=== PATIENT | female | born 1960 | race Two or more races ===

== ENCOUNTER 2022-12-10 14:48 | Emergency (ER) | payer OTHER ==
[~2022-12-10] VITALS: Ht 152.4 cm; Wt 51.7 kg
[~2022-12-10 14:48] MED LIST: ANTIVERT25 M1 PO; PHENERGAN25 MG PO
[2022-12-10] MEDS ORDERED: PEPCID AC20 MG PO (19:16)
[2022-12-10] MEDS ORDERED: LEVSIN/SL0.125 MG SL (19:16)
== END 2022-12-10 19:24 | disposition home or self-care (01) ==
LOC: ER 14:48
DX: R10.9 Unspecified abdominal pain (principal)

== ENCOUNTER 2022-12-11 21:02 | Emergency (ER) | payer OTHER ==
[~2022-12-11] VITALS: Ht 154.9 cm; Wt 51.7 kg
[~2022-12-11 21:02] MED LIST changes: +LEVSIN/SL0.125 MG SL; +PEPCID AC20 MG PO
== END 2022-12-12 01:06 | disposition home or self-care (01) ==
LOC: ER 21:02
DX: B02.29 Other postherpetic nervous system involvement (principal); Z20.822 Contact with and (suspected) exposure to COVID-19